=== PATIENT | female | born 1985 | race Caucasian/White ===

== ENCOUNTER 2017-02-11 19:34 | Emergency (ER) | payer OTHER ==
--- NOTE | ~2017-02-11 | CR7 ---
[facility]. [facility] A Service of [facility] & [facility] / [facility] RADIOLOGY TEXT RESULTS PATIENT: VINNIE EASON LOCATION: SED : [birth year] UNIT #: [id number] AGE: [address]: Kane Grimes SEX: F ORDER DR: [id number] [address] [address] [id number] E MR#: [id number] Acc #: [id number] NAME: VINNIE EASON : 1985 SEX: F STUDY DATE/TIME: 02/11/2017 19:52 UNIT: SED ROOM: STUDY DESCRIPTION: CR Abdomen Single AP View Attending Physician: Kane Grimes P.A.-C. Ordering Physician: Kane Grimes P.A.-C. Primary Care Physician: Primary Care Physician No MEDICAL IMAGING REPORT This report is preliminary unless electronic signature is present. EXAM Single view abdomen HISTORY 32-year-old female with no bowel movement x1 month. History of DVT, pancreatitis. FINDINGS A single view of the abdomen demonstrates a moderate amount of colonic stool consistent with the patient's history of constipation. No evidence of high grade obstruction. Large amount of stool in the rectal vault could indicate some degree of fecal impaction. No organomegaly. No abnormal masses or calcifications. Osseous structures are unremarkable. Dictated by... Guillermo Lopez M.D. THIS IS AN ELECTRONICALLY VERIFIED REPORT Guillermo Lopez M.D. at 02/12/2017 6:32 PM Carter TD: 02/12/2017 09:22 JOB #: [id number] MEDICAL IMAGING REPORT
[~2017-02-11 19:34] MED LIST: ACETAMINOPHEN500 M2 PO; AMLODIPINE BESYL5 MG PO; BACTRIM DS TABL1 TA1 PO; DICYCLOMINE HCL20 MG; DOXYCYCLINE PO; FLAGYL PO; HYDROCHLOROTHIA25 MG PO; KEFLEX500 MG PO; LEVAQUIN750 MG PO; LISINOPRIL10 MG PO; LOMOTIL TABLET1 TAB PO; LORTAB 5/500 TA1 TA1 PO; MACROBID100 MG PO; NO MEDICATIONS; PHENERGAN25 MG PO; PRILOSEC20 MG PO; PYRIDIUM100 MG PO; ULTRAM PO; VICODIN 5/1 TAB 5/50 PO; VOLTAREN75 MG; ZESTRIL10 MG PO
== END 2017-02-11 20:40 | disposition home or self-care (01) ==
LOC: SED 19:34
DX: K59.00 Constipation, unspecified (principal); R10.9 Unspecified abdominal pain; F17.200 Nicotine dependence, unspecified, uncomplicated; Z91.018 Allergy to other foods
CPT/HCPCS: 74000; 99284